=== PATIENT | male | born 1945 | race African-American/Black ===

== ENCOUNTER 2019-07-03 11:33 | Inpatient (IN) | payer OTHER ==
--- NOTE | 2019-07-03 12:00 | PDOC ---
History of Present Illness - General Chief Complaint: Revisit,Radiology Variance Stated Complaint: SENT FROM RADIOLOGY Time Seen by Provider: 07/03/19 11:59 History Source: Patient Exam Limitations: No Limitations - History of Present Illness Initial Comments: Darwin Smith is a 74 yo M w a pmh of HTN, HCL, cataracts, and BPH who presents to the [facility] er from radiology after he had an abnormal MRI result suggesting the patient is having an acute left temporal stroke and significant microvascular disease. The patient states he is asymptomatic at the present time. He saw Dr. Don as an outpatient [address] Don scheduled his brain MRI. The patient was seeing Dr. Don because he was experiencing memory loss and frequent episodes of confusion. The patient takes a baby aspirin every day and took one 81 mg aspirin this morning. The patient denies any current or recent weakness, numbness, tingling, chills, slurring of speech, falling down or head trauma, chest pain, SOB, fevers, chills or difficulty breathing. Neurologist: Dr. Don PCP: Jerod Naylor PSH: None reported Social Hx: Former smoker. Denies current alcohol, cigarettes, or illicit drug usage Allergies: NKA, NKDA tPA Exclusion checklist 3-4.5h - Time Elapsed Date last known well: 06/24/19 Time last known well: 07:00 Elaspsed time: 9 Day(s) and 6 Hour(s) and 37 Minutes - Thrombolytic Therapy Candidate Is patient eligible for thrombolytic therapy: No - Exclusion Criteria 3-4.5 hr SBP greater than 185 or DBP greater than 110mmHg despite tx: No Recent IC/spinal surgery,head trauma or stroke<3mos.: No Hx IC hemorrhage, IC neoplasm, AV malformation or aneurysm: No Active internal bleeding: No Blding diathesis(low plt ct, inc PTT,INR>1.7 or use of NOAC): No Symptoms suggest subarachnoid hemorrhage: No CT demonstrates multilobar infarct(>1/3 cerebral hemiphere): No Arterial puncture at noncompressible site in previous 7 days: No Blood glucose concentration less than 50mg/dL (2.7mmol/L): No - Relative Exclusion Criteria 3-4.5 hr Life expectancy <1 yr or severe co-morbid illness: No : No Patient/family refused: No Rapid improvement: Yes Stroke severity too mild: Yes Recent acute MA (w/in previous 3 months): No Seizure at onset with postictal residual neuro impairments: No Major surgery or serious trauma w/in previous 14 days: No Recent GI or hemorrhage (w/in previous 21 days): No - Add'l Relative Exclusion 3-4.5 hr Age > 80: No Hx of both diabetes AND prior ischemic stroke: No Taking an oral anticoagulant regardless of INR: No NIHSS >25: No - Ineligibility reason(s) Reasons No tPA given: Outside of window - delayed arrival, See reason(s) noted above NIH Stroke Scale - Last Known Well Date/Time & Onset Date Last Known Well: 06/23/19 Time Last Known Well: 07:00 - Initial Evaluation Level of consciousness: Alert Ask patient the month and their age: Answers one correctly Ask patient to open & close eyes; make fist and let go: Obeys both correctly Best gaze (horizontal eye movement): Normal Visual field testing: No visual field loss Facial paresis (Show teeth/raise eyebrows/close eyes tight): Normal symmetrical movement Motor Function: Left Arm: Normal Motor Function: Right Arm: Normal (extends arm 90 (or 45) degrees for 10 seconds without drift Motor Function: Left Leg: Normal (extends leg 30 degrees for 5 seconds without drift) Motor Function: Right Leg: Normal (extends leg 30 degrees for 5 seconds without drift) Limb Ataxia: No ataxia Sensory(Use pinprick test arms,legs,trunk,face/side to side): Normal Best language (Describe picture, name items, read sentences): No Aphasia Dysarthria (read several words): Normal articulation Extinction and Inattention: No abnormality - Total Score NIH Stroke Scale Score: 1 Past History - Past Medical History Allergies/Adverse Reactions: Allergies Allergy/AdvReac Type Severity Reaction Status Date / Time No Known Allergies Allergy Verified 07/03/19 11:42 Home Medications: Ambulatory Orders Aspirin [ASA -] 81 mg PO DAILY 07/03/19 Atenolol [Tenormin -] 25 mg PO DAILY 07/03/19 Atorvastatin Ca [Lipitor] 20 mg PO HS 07/03/19 Finasteride [Proscar -] 5 mg PO DAILY 07/03/19 Tamsulosin HCl [Flomax] 0.4 mg PO DAILY 07/03/19 COPD: No HTN: Yes Hypercholesterolemia: Yes Other medical history: prostate - Surgical History Gastric Stapling: No - Immunization History Immunization Up to Date: No - Psycho Social/Smoking Cessation Hx Smoking History: Former smoker Have you smoked in the past 12 months: No Information on smoking cessation initiated: No Hx Alcohol Use: No Drug/Substance Use Hx: No Review of Systems - Review of Systems Able to Perform ROS?: Yes Comments:: CONSTITUTIONAL: Absent: fever, chills, diaphoresis, generalized weakness, malaise, loss of appetite HEENT: Absent: rhinorrhea, nasal congestion, throat pain, throat swelling, difficulty swallowing, mouth swelling, ear pain, eye pain, visual Changes CARDIOVASCULAR: Absent: chest pain, syncope, palpitations, irregular heart rate, lightheadedness , peripheral edema RESPIRATORY: Absent: cough, shortness of breath, dyspnea with exertion, orthopnea, wheezing, stridor, hemoptysis GASTROINTESTINAL: Absent: abdominal pain, abdominal distension, nausea, vomiting, diarrhea, constipation, melena, hematochezia GENITOURINARY: Absent: dysuria, frequency, urgency, hesitancy, hematuria, flank pain, genital pain MUSCULOSKELETAL: Absent: myalgia, arthralgia, joint swelling SKIN: Absent: rash, itching, pallor HEMATOLOGIC/IMMUNOLOGIC: Absent: easy bleeding, easy bruising, lymphadenopathy, frequent infections ENDOCRINE: Absent: unexplained weight gain, unexplained weight loss, heat intolerance, cold intolerance NEUROLOGIC: Present: Confusion/mental status changes, memory loss Absent: headache, focal weakness or paresthesias, dizziness, unsteady gait, seizure, bladder or bowel incontinence PSYCHIATRIC: Absent: anxiety, depression, suicidal or homicidal ideation, hallucinations. *Physical Exam - Vital Signs Last Vital Signs Temp Pulse Resp BP Pulse Ox 98.2 F 55 L 16 167/85 97 07/03/19 11:38 07/03/19 11:38 07/03/19 11:38 07/03/19 11:38 07/03/19 11:38 - Physical Exam Comments: GENERAL: Well developed, well nourished. Awake and alert. No acute distress. HEENT: Arcus Senilis b/l. Normocephalic, atraumatic. PERRLA, EOMI. No conjunctival pallor. Sclera are non-icteric. Moist mucous membranes. Oropharynx is clear. NECK: Supple. Full ROM. No JVD. CARDIOVASCULAR: Regular rate and rhythm. No murmurs, rubs, or gallops. Distal pulses are 2+ and symmetric. PULMONARY: No evidence of respiratory distress. Lungs clear to auscultation bilaterally. No wheezing, rales or rhonchi. ABDOMINAL: Soft. Non-tender. Non-distended. No rebound or guarding. No organomegaly. Normoactive bowel sounds. MUSCULOSKELETAL Normal range of motion at all joints. No bony deformities or tenderness. No CVA tenderness. EXTREMITIES: No cyanosis. No clubbing. No edema. No calf tenderness. SKIN: Warm and dry. Normal capillary refill. No rashes. No jaundice. NEUROLOGICAL: Alert, awake, appropriate. Cranial nerves 2-12 intact. No deficits to light touch in face, upper extremities and lower extremities. No motor deficits in the in face, upper extremities and lower extremities. Normal speech. Gait is normal without ataxia. PSYCHIATRIC: Cooperative. Good eye contact. Appropriate mood and affect. Heart Score/ECG Review - ECG Intrepretation Rhythm: Regular Rhythm - Aquilla Aquilla: Right Aquilla Deviation - P and AL Prolonged AL Interval: 1st Degree Block(>20mils) Prominent R with upright T in V1 (true posterior MA): No Delta Wave(s) Present: No WPW: No - QRS Widened: RBBB Poor R Wave Progression: No Q Wave Present: No - ST and T Early Repolarization: No Non Specific ST-T Wave changes: No - ECG Impressions Normal ECG: No Non-specific ST Elevation: No Bradycardia: Yes Heart Block: 1st Degree Block(>20mils) Torsades laurie Pointes: No WPW: No Comment:: Sinus bradycardia w/ 1st degree AV block. RBBB Abnormal EKG - No evidence of A-fib ED Treatment Course - LABORATORY CBC & Chemistry Diagram: 07/03/19 12:50 07/03/19 12:50 - RADIOLOGY Radiograph Interpretation: Brain MRI: Indication: Dementia. Memory loss. Technique: A multi sequential, multiplanar MRI of the brain without contrast. Comparison: None available. Findings: There is abnormal restricted diffusion with hyperintense T2/FLAIR signal in the left temporal lobe with regional sulcal compression. No evidence of blood products within this infarct on SWI. There is mild generalized age- related volume loss with ex vacuo prominence of the sulci, cisterns and ventricles. There is no hydrocephalus. Confluent and nonconfluent T2/FLAIR signal within the deep and subcortical cerebral white matter is nonspecific, but likely attributed to chronic microvascular ischemia. There is also relatively symmetric nonspecific T2/FLAIR signal within the region of the pontine tegmentum. Several foci of susceptibility within the left lentiform nucleus and bilateral caudates is likely hemosiderin from chronic petechial microhemorrhages, statistically likely to be due to hypertension. Signal voids related to flow are present in the large central arteries of the [place] and major dural sinuses. No fluid levels in the paranasal sinuses or mastoids. Impression: 1. Acute nonhemorrhagic left temporal infarct with regional sulcal compression. No significant mass effect or hydrocephalus. 2. Moderate to severe chronic microvascular ischemic changes in the cerebral white matter. Nonspecific T2/FLAIR signal abnormality within the pontine tegmentum is not typical of chronic microvascular ischemia. 3. Gangliocapsular chronic petechial microhemorrhages are statistically likely to be due to hypertension. Findings reported to Dr. Walters at 11:15 AM on 07/03/2019. Patient escorted to the emergency department by radiology staff. Medical Decision Making - Medical Decision Making Darwin Smith is a 74 yo M w a pmh of HTN, HCL, cataracts, and BPH who presents to the [facility] er from radiology after he had an abnormal MRI result suggesting the patient is having an acute left temporal stroke and significant microvascular disease. The patient states he is asymptomatic at the present time. He saw Dr. Don as an outpatient [address] Don scheduled his brain MRI. The patient was seeing Dr. Don because he was experiencing memory loss and frequent episodes of confusion. The patient takes a baby aspirin every day and took one 81 mg aspirin this morning. The patient denies any current or recent weakness, numbness, tingling, chills, slurring of speech, falling down or head trauma, chest pain, SOB, fevers, chills or difficulty breathing. Vital Signs Temp Pulse Resp BP Pulse Ox 98.2 F 55 L 16 167/85 97 07/03/19 11:38 07/03/19 11:38 07/03/19 11:38 07/03/19 11:38 07/03/19 11:38 Brain MRI: Impression: 1. Acute nonhemorrhagic left temporal infarct with regional sulcal compression. No significant mass effect or hydrocephalus. 2. Moderate to severe chronic microvascular ischemic changes in the cerebral white matter. Nonspecific T2/FLAIR signal abnormality within the pontine tegmentum is not typical of chronic microvascular ischemia. 3. Gangliocapsular chronic petechial microhemorrhages are statistically likely to be due to hypertension. MDM: Patient presents with suspicious MRI brain findings worrisome for acute stroke and is at risk for further strokes. Plan: Stroke workup with labs, EKG, CXR, ECHO, Carotid duplex, Neuro consult, admit to stroke floor Neuro consult - Dr. Don: He is following patient. Wants the patient admitted to the stroke unit for work up. Requests 2 more baby aspirin no plavix. Labs: Elevated Cr Dispo: Admit to stroke floor Discharge - Discharge Information Problems reviewed: Yes Clinical Impression/Diagnosis: NIKOS (acute kidney injury) CVA (cerebral vascular accident) Qualifiers: CVA mechanism: thrombosis Precerebral and cerebral artery: unspecified precerebral artery Qualified Code(s): I63.00 - Cerebral infarction due to thrombosis of unspecified precerebral artery Condition: Stable - Admission Yes - Follow up/Referral - Patient Discharge Instructions - Post Discharge Activity
[2019-07-03] MEDS ORDERED: ASPIRIN 81 MG CHEWABLE TABLETS PO ONE (12:16)
[2019-07-03] MEDS ORDERED: ROSUVASTATIN CA 5 MG TABLET (FP) PO ONE (12:40)
--- NOTE | 2019-07-03 12:45 | CON.NEURO ---
Consult Consult Specialty:: Arian Referred by:: ER Reason for Consultation:: CVA - History of Present Illness History of Present Illness: 74 years old man with PMH CAD OA HTN BPH came for elective MRI due to subacute memory changes and confusion I saw him 10 days ago as out patient referred him to MRI Called by the MRI with acute change In [facility] ER calm No AMS No seizure MRI images noted Subcortical lesion ??? 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 industrial trainer Rsults are not available - History Source History Provided By: Patient, Family Member, Significant Other Limitations to Obtaining History: No Limitations - Alcohol/Substance Use Hx Alcohol Use: No - Smoking History Smoking history: Former smoker Have you smoked in the past 12 months: No Home Medications - Allergies Allergies/Adverse Reactions: Allergies Allergy/AdvReac Type Severity Reaction Status Date / Time No Known Allergies Allergy Verified 07/03/19 11:42 - Home Medications Home Medications: Ambulatory Orders Aspirin [ASA -] 81 mg PO DAILY 07/03/19 Atenolol [Tenormin -] 25 mg PO DAILY 07/03/19 Atorvastatin Ca [Lipitor] 20 mg PO HS 07/03/19 Finasteride [Proscar -] 5 mg PO DAILY 07/03/19 Tamsulosin HCl [Flomax] 0.4 mg PO DAILY 07/03/19 Review of Systems - Review of Systems Constitutional: reports: No Symptoms Eyes: reports: No Symptoms Neurological: reports: Dizziness, Headache, Incoordination, Numbness Physical Exam-Neuro Vital Signs: Vital Signs Temperature 98.2 F 07/03/19 11:38 Pulse Rate 55 L 07/03/19 11:38 Respiratory Rate 16 07/03/19 11:38 Blood Pressure 167/85 07/03/19 11:38 O2 Sat by Pulse Oximetry (%) 97 07/03/19 11:38 Constitutional: Yes: Well Nourished Neck: Yes: WNL - Neuro Exam Level Of Consciousness: Yes: Oriented to Person, Oriented to Place, Oriented to Time Eyes: Yes: PERRLA Speech: WNL Dominant Hand: Right Cranial Nerves II-XII Intact: Yes Gag: Present DTR's: 1+ Left Bicep, 1+ Right Bicep, 1+ Left Brachioradialis, 1+ Right Brachioradialis Response to light touch: Normal Response to pain prick: Normal Response to temperature: Normal Motor Strength: 3/5: Left Arm, Right Arm, Left Leg, Right Leg Gait: Deferred Imaging - Results MRI: Image Reviewed Problem List - Problems (1) CVA (cerebral vascular accident) Assessment/Plan: very peculiar looking non cortical lesion in [facility] posterior frontal area with no edema Doubt CVA 1. Admit to [facility] stroke unit 2. Neuro check s 3. Spoke to his PCP at [facility] 4 .Full ASA 5. Lipitor 40 6. MRI of [facility] brain with Espinoza Code(s): I63.9 - CEREBRAL INFARCTION, UNSPECIFIED Qualifiers: CVA mechanism: thrombosis Precerebral and cerebral artery: unspecified precerebral artery Qualified Code(s): I63.00 - Cerebral infarction due to thrombosis of unspecified precerebral artery
--- NOTE | 2019-07-03 12:46 | PDOC ---
Attending Attestation - Resident Resident Name: PablovolodymyrAlvin - ED Attending Attestation I have performed the following: I have examined & evaluated the patient, The case was reviewed & discussed with the resident, I agree w/resident's findings & plan, Exceptions are as noted - HPI HPI: 07/03/19 12:54 74yo male presents from MRI imaging for eval of an acute cva seen on MRI. Pt states friday a week ago he developed memory loss. States he saw his pmd and then dr. servin who orderd an MRI brain for poss early onset dementia and memory loss. Pt went to outpt imaging today and was sent to the ER for eval of acute cva on MRI. Pt did take asa this am. Only neuro complaint is memory loss. No pires. No cp/sob. No numbness/tingling. No weakness. NO abd pain. No n/v/d. NO dysuria. No f/c. - Physicial Exam PE: 07/03/19 12:55 Gen: aaox3, nad heent: PERRL, EOMI, MMM heart: +s1s2 dimitri lungs: cta b/l abd: soft, nt/nd +bs ext: no c/c/e neuro: cn ii-xii grossly intact, unable to ID month, muscle strength 5/5 UE and LE, sensation intact - Medical Decision Making 07/03/19 12:56 a/p: 74yo male with memory loss x 1 week -acute cva temporal lobe on mri -consult and call placed to dr. servin -pt will need admission, carotids, and echo, will send labs -will admit to [facility] -no tpa given 1 week of symptoms -NIHSS 1 for inability remember the month 07/03/19 13:33 labs reviewed microblog sent to [facility] for admission for acute cva 07/03/19 13:53 resident discussed the case with [facility] who accepts pt to service Heart Score/ECG Review - ECG Intrepretation Comment:: 07/03/19 12:59 sinus dimitri at 47, rbbb, 1st degree av block, no acute st/t wave findings
[2019-07-03] MEDS ORDERED: ASPIRIN 81 MG CHEWABLE TABLETS ONE (13:00)
[2019-07-03 13:07] LABS: EOS % 2.2 % (0-4.5); HEMATOCRIT 38.8 % (35.4-49); HEMOGLOBIN 11.9 GM/dL (11.7-16.9); LYMPH % 43.4 % (8-40); MCHC 30.5 g/dl (32.0-35.9); MEAN CELL VOLUME 61.3 fl (80-96); MEAN PLT VOLUME 9.6 fl (7.5-11.1); MONO % 8.1 % (3.8-10.2); NEUT % 45.3 % (42.8-82.8); PLATELET COUNT 180 K/MM3 (134-434); RBC 6.33 M/mm3 (4.00-5.60); RDW 17.1 % (11.9-15.9); WHITE BLOOD COUNT 6.9 K/mm3 (4.0-10.0)
[2019-07-03 13:09] LABS: MCH 18.7 pg (25.7-33.7)
[2019-07-03 13:23] LABS: INR 1.02 (0.83-1.09)
[2019-07-03 13:25] LABS: ACTIVATED PTT 36.5 SECONDS (25.2-36.5)
[2019-07-03 13:28] LABS: ALBUMIN 3.8 g/dl (3.4-5.0); BILIRUBIN,TOTAL 0.6 mg/dL (0.2-1); BLOOD UREA NITROGEN 16.1 mg/dL (7-18); CALCIUM 9.1 mg/dL (8.5-10.1); CREATININE 1.4 mg/dL (0.55-1.3); POTASSIUM 4.1 mmol/L (3.5-5.1); TOT PROT 7.2 g/dl (6.4-8.2)
[2019-07-03 14:36] LABS: OVALOCYTE 1+; PLATELET ESTIMATE ADEQUATE; TARGET CELLS 2+; TEAR DROP CELLS 1+
--- NOTE | 2019-07-03 15:26 | HP ---
CHIEF COMPLAINT: forgetfullness PCP: Dr. Jerod Tomas HISTORY OF PRESENT ILLNESS: Patient is a 74 y/o male with a history of COPD, OA, HTN, BPH, and HLD who presents for forgetfullness. Patient recently saw Dr. Don as an outpatient and recommended the patient have a MRI. Patient was getting his MRI today and they called Dr. Don with the results who recommended the patient be admitted to the stroke floor. Patient reports that he has also been more tired recently. Patient has no other neuro complaints. ED NIH score 1 ( forgot the month). Patient does not have anyone in his family who has had a stroke. Reports he is compliant with his medications. Patient denies headache, nausea, vomiting, blurry vision, or chest pain. ER course was notable for: (1) carotids: no stenosis (2) (3) Recent Travel: [place] 1 year ago PAST MEDICAL HISTORY: COPD, OA, HTN, BPH, and HLD PAST SURGICAL HISTORY: Turp Social History: Smokin pack year history, no longer smokes Alcohol: occasionally Drugs: denies Allergies No Known Allergies Allergy (Verified 07/03/19 11:42) HOME MEDICATIONS: Home Medications Medication Instructions Recorded Aspirin [ASA -] 81 mg PO DAILY 07/03/19 Atenolol [Tenormin -] 25 mg PO DAILY 07/03/19 Atorvastatin Ca [Lipitor] 20 mg PO HS 07/03/19 Finasteride [Proscar -] 5 mg PO DAILY 07/03/19 Tamsulosin HCl [Flomax] 0.4 mg PO DAILY 07/03/19 REVIEW OF SYSTEMS CONSTITUTIONAL: Absent: fever, chills, diaphoresis, generalized weakness, malaise, loss of appetite, weight change HEENT: Absent: rhinorrhea, nasal congestion, throat pain, throat swelling, difficulty swallowing, mouth swelling, ear pain, eye pain, visual changes CARDIOVASCULAR: Absent: chest pain, syncope, palpitations, irregular heart rate, lightheadedness , peripheral edema RESPIRATORY: Absent: cough, shortness of breath, dyspnea with exertion, orthopnea, wheezing, stridor, hemoptysis GASTROINTESTINAL: Absent: abdominal pain, abdominal distension, nausea, vomiting, diarrhea, constipation, melena, hematochezia GENITOURINARY: Absent: dysuria, frequency, urgency, hesitancy, hematuria, flank pain, genital pain MUSCULOSKELETAL: Absent: myalgia, arthralgia, joint swelling, back pain, neck pain SKIN: Absent: rash, itching, pallor HEMATOLOGIC/IMMUNOLOGIC: Absent: easy bleeding, easy bruising, lymphadenopathy, frequent infections ENDOCRINE: Absent: unexplained weight gain, unexplained weight loss, heat intolerance, cold intolerance NEUROLOGIC: memory loss Absent: headache, focal weakness or paresthesias, dizziness, unsteady gait, seizure, mental status changes, bladder or bowel incontinence PSYCHIATRIC: Absent: anxiety, depression, suicidal or homicidal ideation, hallucinations. PHYSICAL EXAMINATION Vital Signs - 24 hr 07/03/19 07/03/19 11:38 15:13 Temperature 98.2 F Pulse Rate 55 L Pulse Rate [ 60 Apical] Respiratory 16 18 Rate Blood Pressure 167/85 Blood Pressure 132/68 [Left Arm] O2 Sat by Pulse 97 96 Oximetry (%) GENERAL: Awake, alert, and fully oriented, in no acute distress. HEAD: Normal with no signs of trauma. EYES: Pupils equal, round and reactive to light, extraocular movements intact EARS, NOSE, THROAT: Moist mucous membranes. LUNGS: Breath sounds equal, clear to auscultation bilaterally. No wheezes, and no crackles. No accessory muscle use. HEART: Regular rate and rhythm, normal S1 and S2 without murmur, rub or gallop. ABDOMEN: Soft, nontender, not distended, normoactive bowel sounds, no guarding, no rebound, no masses. MUSCULOSKELETAL: Normal range of motion at all joints. LOWER EXTREMITIES: 2+ pulses, warm, well-perfused. No calf tenderness. No peripheral edema. NEUROLOGICAL: Cranial nerves II-XII intact. Normal speech. Normal gait. PSYCHIATRIC: Cooperative. Good eye contact. Appropriate mood and affect. SKIN: Warm, dry, normal turgor, no rashes or lesions noted, normal capillary refill. CBC, BMP 07/03/19 12:50 07/03/19 12:50 ASSESSMENT/PLAN: Patient is a 74 y/o male with a history of COPD, OA, HTN, BPH, and HLD who is admitted for possible subcortical lesion. #memory change - unlikely CVA as per neuro, likely 2/2 to mass - MRI: non cortical lesion in the posterior frontal area without edema - f/u repeat MRI with gadolinium - neuro checks - continue asa 81 - continue atorvastatin 40 daily - carotid US: without any stenosis - f/u Echo - monitor on tele, ekg with RBB #HTN - continue atenolol #BPH - continue finasteride and tamsulosin #DVT ppx - SCD's, hold AC #FEN - NPO until passes bedside swallow Dispo: monitor on stroke unit Visit type - Emergency Visit Emergency Visit: Yes ED Registration Date: 07/03/19 Care time: The patient presented to the Emergency Department on the above date and was hospitalized for further evaluation of their emergent condition. - New Patient This patient is new to me today: Yes Date on this admission: 07/05/19 - Critical Care Critical Care patient: No ATTENDING PHYSICIAN STATEMENT I saw and evaluated the patient. I reviewed the resident's note and discussed the case with the resident. I agree with the resident's findings and plan as documented. SUBJECTIVE: OBJECTIVE: ASSESSMENT AND PLAN:
--- NOTE | 2019-07-03 15:52 | PN ---
Teaching Attending Note Name of Resident: Arlene Dee ATTENDING PHYSICIAN STATEMENT I saw and evaluated the patient. I reviewed the resident's note and discussed the case with the resident. I agree with the resident's findings and plan as documented. SUBJECTIVE: Complains of recent bouts of forgetfulness. No headache/visual disturbance/limb numbness, weakness, or tingling. No fever/chills. NO LOC - no seizure/blackouts/fall/HI. OBJECTIVE: Afebrile, Hemodynamically Stable. Last Vital Signs Temp Pulse Resp BP Pulse Ox 98.2 F 60 18 132/68 96 07/03/19 11:38 07/03/19 15:13 07/03/19 15:13 07/03/19 15:13 07/03/19 15:13 HEENT - Atraumatic, Normocephalic. HEART - S1, S2, RRR LUNGS - clear to auscultation ABDOMEN - Soft, non-tender. Bowel Sounds normal. EXTREMITIES - no edema, no calf tenderness. NEURO - AAO x 3. EOMI. JAYSHREE. TONE/POWER normal all 4 extremities. Sensation/ Coordination intact. Laboratory Results - last 24 hr 07/03/19 07/03/19 07/03/19 12:50 12:50 12:50 WBC 6.9 RBC 6.33 H Hgb 11.9 Hct 38.8 MCV 61.3 L MCH 18.7 L MCHC 30.5 L RDW 17.1 H Plt Count 180 MPV 9.6 Absolute Neuts (auto) 3.1 Neutrophils % 45.3 Lymphocytes % 43.4 H Monocytes % 8.1 Eosinophils % 2.2 Basophils % 1.0 Nucleated RBC % 0 Platelet Estimate Adequate Platelet Comment No clumping noted Polychromasia 1+ Basophilic Stippling 1+ Microcytosis 1+ Spherocytes 1+ Target Cells 2+ Tear Drop Cells 1+ Ovalocytes 1+ Fragmented RBCs 1+ PT with INR INR PTT (Actin FS) Sodium 144 Potassium 4.1 Chloride 109 H Carbon Dioxide 28 Anion Gap 8 BUN 16.1 Creatinine 1.4 H Est GFR (CKD-EPI)AfAm 57.36 Est GFR (CKD-EPI)NonAf 49.49 Random Glucose 87 Calcium 9.1 Total Bilirubin 0.6 AST 15 ALT 26 Alkaline Phosphatase 55 Creatine Kinase 156 Creatine Kinase Index 0.8 CK-MB (CK-2) 1.4 Troponin I < 0.02 Total Protein 7.2 Albumin 3.8 Triglycerides 95 Cholesterol 174 Total LDL Cholesterol 84 HDL Cholesterol 73 H Blood Type Antibody Screen 07/03/19 07/03/19 12:50 12:50 WBC RBC Hgb Hct MCV MCH MCHC RDW Plt Count MPV Absolute Neuts (auto) Neutrophils % Lymphocytes % Monocytes % Eosinophils % Basophils % Nucleated RBC % Platelet Estimate Platelet Comment Polychromasia Basophilic Stippling Microcytosis Spherocytes Target Cells Tear Drop Cells Ovalocytes Fragmented RBCs PT with INR 12.00 INR 1.02 PTT (Actin FS) 36.5 Sodium Potassium Chloride Carbon Dioxide Anion Gap BUN Creatinine Est GFR (CKD-EPI)AfAm Est GFR (CKD-EPI)NonAf Random Glucose Calcium Total Bilirubin AST ALT Alkaline Phosphatase Creatine Kinase Creatine Kinase Index CK-MB (CK-2) Troponin I Total Protein Albumin Triglycerides Cholesterol Total LDL Cholesterol HDL Cholesterol Blood Type A NEGATIVE Antibody Screen Negative Current Medications Generic Name Dose Route Start Last Admin Trade Name Freq PRN Reason Stop Dose Admin Aspirin 81 mg 07/04/19 10:00 Asa - PO DAILY [facility] Atenolol 25 mg 07/04/19 10:00 Tenormin - PO DAILY [facility] Atorvastatin Calcium 40 mg 07/04/19 06:00 Lipitor - PO DAILY@0600 [facility] Enoxaparin Sodium 40 mg 07/04/19 10:00 Lovenox - SQ DAILY [facility] Finasteride 5 mg 07/04/19 10:00 Proscar - PO DAILY [facility] Sodium Chloride 1,000 mls @ 42 mls/hr 07/03/19 12:30 Normal Saline - IV ASDIR [facility] Tamsulosin HCl 0.4 mg 07/04/19 08:30 Flomax - PO DAILY@0830 [facility] Home Medications Medication Instructions Recorded Aspirin [ASA -] 81 mg PO DAILY 07/03/19 Atenolol [Tenormin -] 25 mg PO DAILY 07/03/19 Atorvastatin Ca [Lipitor] 20 mg PO HS 07/03/19 Finasteride [Proscar -] 5 mg PO DAILY 07/03/19 Tamsulosin HCl [Flomax] 0.4 mg PO DAILY 07/03/19 ASSESSMENT AND PLAN: 74 year old male ex-smoker with history of COPD, HTN, HLD, BPH s/p TURP, initially presented to Neuro with recent bouts of forgetfulness, had MRI as an out-patient which was significant for possible acute CVA (L temporal infarct) with moderae to severe chronic microvascular changes, and petechial hemorrhages. No headache/visual disturbance/limb numbness, weakness, or tingling. No fever/chills. NO LOC - no seizure/blackouts/fall/HI. 1. Possible Anterograde Amnesia Otherwiese Neurologicaly intact. ?sec to vascular event Seen by Neurology who is questioning possible ischemic lesion/cortical mass in posterior frontal region. Continue Aspirin, Statin (dose increased to 40mg) Repeat MRI with ZAHIDA ordered. Carotid Duplex negative for significant stenosis ECG - SR, RBBB Echo with bubble study ordered. Neurology evaluated Telemonitoring bed. 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 HTN - continue Atenolol 3. BPH s/p TURP - Continue Finasteride and Tamsulosin 4. HLD - Continue Statin. 5. Elevated Creat 1.4, likely CKD. Urine Na/Creat requested. Baseline Creat unknown. Will ensure adequate hydration and monitor. 6. Microcytosis - no evidence of acute blood loss. Denies melena/hematochezia. Iron studies requested. FOBT requested. DVT Px - SCDs. Lovenox held due to possible petechial hemorrhages on initial MRI.
[2019-07-03] MEDS: SODIUM CHLORIDE 1,000 ML IV SCH (16:42)
[2019-07-03 22:55] LABS: EPI CELLS 1.2 /HPF (0-5/HPF); HYALINE CASTS 2 /lpf (0-8); URINE APPEARANCE CLEAR; URINE BACTERIA 0.5 /hpf (NEGATIVE); URINE BILIRUBIN NEGATIVE (NEGATIVE); URINE COLOR YELLOW; URINE GLUCOSE (UA) NEGATIVE (NEGATIVE); URINE KETONE NEGATIVE (NEGATIVE); URINE LEUK ESTERASE TRACE (NEGATIVE); URINE NITRITE NEGATIVE (NEGATIVE); URINE PROTEIN NEGATIVE (NEGATIVE); URINE RBC 0 /hpf (0-4); URINE WBC 6 /hpf (0-5)
[2019-07-04] MEDS ORDERED: ATORVASTATIN CA 40 MG TABLET (FP) PO SCH ×2 (06:00→23:45)
[2019-07-04 07:55] LABS: HEMATOCRIT 35.1 % (35.4-49); HEMOGLOBIN 10.8 GM/dL (11.7-16.9); MCHC 30.7 g/dl (32.0-35.9); MEAN PLT VOLUME 9.4 fl (7.5-11.1); PLATELET COUNT 163 K/MM3 (134-434); RBC 5.76 M/mm3 (4.00-5.60); RDW 16.7 % (11.9-15.9); WHITE BLOOD COUNT 6.4 K/mm3 (4.0-10.0)
[2019-07-04 08:02] LABS: MCH 18.7 pg (25.7-33.7)
[2019-07-04] MEDS: TAMSULOSIN HCL 0.4 MG CAP PO SCH (08:20)
[2019-07-04 08:22] LABS: ALBUMIN 3.1 g/dl (3.4-5.0); BILIRUBIN,TOTAL 0.6 mg/dL (0.2-1); BLOOD UREA NITROGEN 14.4 mg/dL (7-18); CALCIUM 8.7 mg/dL (8.5-10.1); CREATININE 1.4 mg/dL (0.55-1.3); PHOSPHOROUS 3.2 mg/dL (2.5-4.9); POTASSIUM 4.4 mmol/L (3.5-5.1); TOT PROT 5.9 g/dl (6.4-8.2)
[2019-07-04] MEDS: FINASTERIDE 5 MG TABLET (FP) PO SCH (09:38)
[2019-07-04] MEDS: ASPIRIN 81 MG CHEWABLE TABLETS PO SCH (09:38)
[2019-07-04] MEDS: ATENOLOL 25 MG TABLET (FP) PO SCH (09:41)
[2019-07-04] MEDS ORDERED: ENOXAPARIN NA (PORCINE) 40 MG/0.4 ML DISP.SYRIN SQ SCH (10:00)
--- NOTE | 2019-07-04 11:36 | PN ---
Progress Note (short form) - Note Progress Note: SUBJECTIVE: Complains of recent bouts of forgetfulness over the past week. No headache/visual disturbance/limb numbness, weakness, or tingling. No fever/ chills. NO LOC - no seizure/blackouts/fall/HI. OBJECTIVE: Afebrile, Hemodynamically Stable. Last Vital Signs Temp Pulse Resp BP Pulse Ox 98 F 53 L 18 135/81 98 07/04/19 08:43 07/04/19 08:43 07/04/19 08:43 07/04/19 08:43 07/03/19 20:06 HEENT - Atraumatic, Normocephalic. HEART - S1, S2, RRR LUNGS - clear to auscultation ABDOMEN - Soft, non-tender. Bowel Sounds normal. EXTREMITIES - no edema, no calf tenderness. NEURO - AAO x 3. EOMI. JAYSHREE. TONE/POWER normal all 4 extremities. Sensation/ Coordination intact. Laboratory Results - last 24 hr 07/03/19 07/03/19 07/03/19 12:50 12:50 12:50 WBC 6.9 RBC 6.33 H Hgb 11.9 Hct 38.8 MCV 61.3 L MCH 18.7 L MCHC 30.5 L RDW 17.1 H Plt Count 180 MPV 9.6 Absolute Neuts (auto) 3.1 Neutrophils % 45.3 Lymphocytes % 43.4 H Monocytes % 8.1 Eosinophils % 2.2 Basophils % 1.0 Nucleated RBC % 0 Platelet Estimate Adequate Platelet Comment No clumping noted Polychromasia 1+ Basophilic Stippling 1+ Microcytosis 1+ Spherocytes 1+ Target Cells 2+ Tear Drop Cells 1+ Ovalocytes 1+ Fragmented RBCs 1+ PT with INR INR PTT (Actin FS) Sodium 144 Potassium 4.1 Chloride 109 H Carbon Dioxide 28 Anion Gap 8 BUN 16.1 Creatinine 1.4 H Est GFR (CKD-EPI)AfAm 57.36 Est GFR (CKD-EPI)NonAf 49.49 Random Glucose 87 Calcium 9.1 Phosphorus Magnesium Iron TIBC Iron Saturation Unsaturated IBC Ferritin Total Bilirubin 0.6 AST 15 ALT 26 Alkaline Phosphatase 55 Creatine Kinase 156 Creatine Kinase Index 0.8 CK-MB (CK-2) 1.4 Troponin I < 0.02 Total Protein 7.2 Albumin 3.8 Triglycerides 95 Cholesterol 174 Total LDL Cholesterol 84 HDL Cholesterol 73 H Urine Color Urine Appearance Urine pH Ur Specific Bucklin Urine Protein Urine Glucose (UA) Urine Ketones Urine Blood Urine Nitrite Urine Bilirubin Urine Urobilinogen Ur Leukocyte Esterase Urine WBC (Auto) Urine RBC (Auto) Urine Casts (Auto) U Epithel Cells (Auto) Urine Bacteria (Auto) Ur Random Creatinine Ur Random Sodium Stool Occult Blood Blood Type Antibody Screen 07/03/19 07/03/19 07/03/19 12:50 12:50 18:38 WBC RBC Hgb Hct MCV MCH MCHC RDW Plt Count MPV Absolute Neuts (auto) Neutrophils % Lymphocytes % Monocytes % Eosinophils % Basophils % Nucleated RBC % Platelet Estimate Platelet Comment Polychromasia Basophilic Stippling Microcytosis Spherocytes Target Cells Tear Drop Cells Ovalocytes Fragmented RBCs PT with INR 12.00 INR 1.02 PTT (Actin FS) 36.5 Sodium Potassium Chloride Carbon Dioxide Anion Gap BUN Creatinine Est GFR (CKD-EPI)AfAm Est GFR (CKD-EPI)NonAf Random Glucose Calcium Phosphorus Magnesium Iron TIBC Iron Saturation Unsaturated IBC Ferritin Total Bilirubin AST ALT Alkaline Phosphatase Creatine Kinase Creatine Kinase Index CK-MB (CK-2) Troponin I Total Protein Albumin Triglycerides Cholesterol Total LDL Cholesterol HDL Cholesterol Urine Color Urine Appearance Urine pH Ur Specific [place] Urine Protein Urine Glucose (UA) Urine Ketones Urine Blood Urine Nitrite Urine Bilirubin Urine Urobilinogen Ur Leukocyte Esterase Urine WBC (Auto) Urine RBC (Auto) Urine Casts (Auto) U Epithel Cells (Auto) Urine Bacteria (Auto) Ur Random Creatinine Ur Random Sodium Stool Occult Blood Blood Type A NEGATIVE A NEGATIVE Antibody Screen Negative 07/03/19 07/04/19 07/04/19 Unknown 06:00 07:47 WBC 6.4 RBC 5.76 H Hgb 10.8 L Hct 35.1 L MCV 61.0 L MCH 18.7 L MCHC 30.7 L RDW 16.7 H Plt Count 163 MPV 9.4 Absolute Neuts (auto) Neutrophils % Lymphocytes % Monocytes % Eosinophils % Basophils % Nucleated RBC % Platelet Estimate Platelet Comment Polychromasia Basophilic Stippling Microcytosis Spherocytes Target Cells Tear Drop Cells Ovalocytes Fragmented RBCs PT with INR INR PTT (Actin FS) Sodium 140 Potassium 4.4 Chloride 111 H Carbon Dioxide 23 Anion Gap 6 L BUN 14.4 Creatinine 1.4 H Est GFR (CKD-EPI)AfAm 57.36 Est GFR (CKD-EPI)NonAf 49.49 Random Glucose 89 Calcium 8.7 Phosphorus 3.2 Magnesium 2.0 Iron 67 TIBC 226 L Iron Saturation 29 Unsaturated IBC 159 L Ferritin 170.4 Total Bilirubin 0.6 AST 16 ALT 23 Alkaline Phosphatase 49 Creatine Kinase Creatine Kinase Index CK-MB (CK-2) Troponin I Total Protein 5.9 L Albumin 3.1 L Triglycerides Cholesterol Total LDL Cholesterol HDL Cholesterol Urine Color Yellow Urine Appearance Clear Urine pH 6.0 Ur Specific Bucklin 1.025 Urine Protein Negative Urine Glucose (UA) Negative Urine Ketones Negative Urine Blood Negative Urine Nitrite Negative Urine Bilirubin Negative Urine Urobilinogen 1.0 Ur Leukocyte Esterase Trace Urine WBC (Auto) 6 Urine RBC (Auto) 0 Urine Casts (Auto) 2 U Epithel Cells (Auto) 1.2 Urine Bacteria (Auto) 0.5 Ur Random Creatinine Ur Random Sodium Stool Occult Blood Blood Type Antibody Screen 07/04/19 07/04/19 09:00 09:00 WBC RBC Hgb Hct MCV MCH MCHC RDW Plt Count MPV Absolute Neuts (auto) Neutrophils % Lymphocytes % Monocytes % Eosinophils % Basophils % Nucleated RBC % Platelet Estimate Platelet Comment Polychromasia Basophilic Stippling Microcytosis Spherocytes Target Cells Tear Drop Cells Ovalocytes Fragmented RBCs PT with INR INR PTT (Actin FS) Sodium Potassium Chloride Carbon Dioxide Anion Gap BUN Creatinine Est GFR (CKD-EPI)AfAm Est GFR (CKD-EPI)NonAf Random Glucose Calcium Phosphorus Magnesium Iron TIBC Iron Saturation Unsaturated IBC Ferritin Total Bilirubin AST ALT Alkaline Phosphatase Creatine Kinase Creatine Kinase Index CK-MB (CK-2) Troponin I Total Protein Albumin Triglycerides Cholesterol Total LDL Cholesterol HDL Cholesterol Urine Color Urine Appearance Urine pH Ur Specific [place] Urine Protein Urine Glucose (UA) Urine Ketones Urine Blood Urine Nitrite Urine Bilirubin Urine Urobilinogen Ur Leukocyte Esterase Urine WBC (Auto) Urine RBC (Auto) Urine Casts (Auto) U Epithel Cells (Auto) Urine Bacteria (Auto) Ur Random Creatinine 65.0 Ur Random Sodium 95 Stool Occult Blood Negative Blood Type Antibody Screen Current Medications Generic Name Dose Route Start Last Admin Trade Name Freq PRN Reason Stop Dose Admin Aspirin 81 mg 07/04/19 10:00 07/04/19 09:38 Asa - PO 81 mg DAILY [facility] Administration Atenolol 25 mg 07/04/19 10:00 07/04/19 09:41 Tenormin - PO 25 mg DAILY [facility] Administration Atorvastatin Calcium 40 mg 07/04/19 06:00 07/04/19 05:49 Lipitor - PO 40 mg DAILY@0600 [facility] Administration Finasteride 5 mg 07/04/19 10:00 07/04/19 09:38 Proscar - PO 5 mg DAILY [facility] Administration Sodium Chloride 1,000 mls @ 42 mls/hr 07/03/19 12:30 07/03/19 16:42 Normal Saline - IV 42 mls/hr ASDIR [facility] Administration Tamsulosin HCl 0.4 mg 07/04/19 08:30 07/04/19 08:20 Flomax - PO 0.4 mg DAILY@0830 [facility] Administration Home Medications Medication Instructions Recorded Aspirin [ASA -] 81 mg PO DAILY 07/03/19 Atenolol [Tenormin -] 25 mg PO DAILY 07/03/19 Atorvastatin Ca [Lipitor] 20 mg PO HS 07/03/19 Finasteride [Proscar -] 5 mg PO DAILY 07/03/19 Tamsulosin HCl [Flomax] 0.4 mg PO DAILY 07/03/19 ASSESSMENT AND PLAN: 74 year old male ex-smoker with history of COPD, HTN, HLD, BPH s/p TURP, initially presented to Neuro with recent bouts of forgetfulness, had MRI as an out-patient which was significant for possible acute CVA (L temporal infarct) with moderae to severe chronic microvascular changes, and petechial hemorrhages. No headache/visual disturbance/limb numbness, weakness, or tingling. No fever/chills. NO LOC - no seizure/blackouts/fall/HI. 1. Possible Anterograde Amnesia Otherwiese Neurologicaly intact. ?sec to vascular event Seen by Neurology who is questioning possible ischemic lesion/cortical mass in posterior frontal region on MRI. Continue Aspirin, Statin (dose increased to 40mg) Carotid Duplex negative for significant stenosis ECG - SR, RBBB Echo with bubble study ordered. Repeat MRI with ZAHIDA done which again showed L temporal lobe restricted diffusion with patchy enhancement suspicious for poss subacute infarct vs cerebritis vs encephalitis vs high grade glial neoplasm. Neurology evaluated - awaiting re-eval s/p repeat MRI with contrast for further recommendations. If this is felt to be an infarct then intensification of secondary stroke prevention will be required as he was on Aspirin when this occurred. 2. HTN - continue Atenolol 3. BPH s/p TURP - Continue Finasteride and Tamsulosin 4. HLD - Continue Statin (if this is felt to be an ischemic event, will increase statin dose to 40mg as LDL below target). LDL 84/HDL 73 5. 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 6. Microcytosis - no evidence of acute blood loss. Denies melena/hematochezia. FOBT neg. Iron/Ferritin not deficient. ?inherited Hb disorders (?SCD ? Thalassemia) - further work-up as out-patient. DVT Px - SCDs. Lovenox held due to possible petechial hemorrhages on initial MRI. Neurology to kindly comment. Visit type - Emergency Visit Emergency Visit: Yes ED Registration Date: 07/03/19 Care time: The patient presented to the Emergency Department on the above date and was hospitalized for further evaluation of their emergent condition. - New Patient This patient is new to me today: No - Critical Care Critical Care patient: No - Discharge Referral Referred to [facility] Med P.C.: No
--- NOTE | 2019-07-04 16:52 | EKG ---
Test Reason : Blood Pressure : / mmHG Vent. Rate : 047 BPM Atrial Rate : 047 BPM P-R Int : 218 ms QRS Dur : 148 ms QT Int : 452 ms P-R-T Axes : 028 101 029 degrees QTc Int : 400 ms SINUS BRADYCARDIA WITH 1ST DEGREE A-V BLOCK RIGHT BUNDLE BRANCH BLOCK ABNORMAL ECG NO PREVIOUS ECGS AVAILABLE Confirmed by MYLES RADFORD, UBALDO ([id number]) on 07/04/2019 4:51:59 PM Referred By: Confirmed By:UBALDO BUENO MD
--- NOTE | 2019-07-04 19:50 | PN ---
Progress Note, Physician History of Present Illness: events noted Seen at 7:30 pm Family at [facility] bedside Slightly confused No seziure No abnormal movement MRI results noted - Current Medication List Current Medications: Active Medications Aspirin (Asa -) 81 mg PO DAILY [facility] Last Admin: 07/04/19 09:38 Dose: 81 mg Atenolol (Tenormin -) 25 mg PO DAILY [facility] Last Admin: 07/04/19 09:41 Dose: 25 mg Atorvastatin Calcium (Lipitor -) 40 mg PO DAILY@0600 [facility] Last Admin: 07/04/19 05:49 Dose: 40 mg Finasteride (Proscar -) 5 mg PO DAILY [facility] Last Admin: 07/04/19 09:38 Dose: 5 mg Sodium Chloride (Normal Saline -) 1,000 mls @ 42 mls/hr IV ASDIR [facility] Last Admin: 07/03/19 16:42 Dose: 42 mls/hr Tamsulosin HCl (Flomax -) 0.4 mg PO DAILY@0830 [facility] Last Admin: 07/04/19 08:20 Dose: 0.4 mg - Objective Vital Signs: Vital Signs Temperature 97.4 F L 07/04/19 18:08 Pulse Rate 52 L 07/04/19 18:08 Respiratory Rate 17 07/04/19 18:08 Blood Pressure 113/62 07/04/19 18:08 O2 Sat by Pulse Oximetry (%) 96 07/04/19 09:00 Constitutional: Yes: Well Nourished Eyes: Yes: WNL Neurological: Yes: Alert, Oriented, Babinski negative ...Motor Strength: WNL Labs: CBC, BMP 07/04/19 07:47 07/04/19 06:00 INR, PTT INR 1.02 (0.83-1.09) 07/03/19 12:50 Problem List - Problems (1) CVA (cerebral vascular accident) Assessment/Plan: MRI with ?? Cerebrits vs low glial lesion Will do Spinal tap Check Cells Check Flow cystometry Consent obtained Code(s): I63.9 - CEREBRAL INFARCTION, UNSPECIFIED Qualifiers: CVA mechanism: thrombosis Precerebral and cerebral artery: unspecified precerebral artery Qualified Code(s): I63.00 - Cerebral infarction due to thrombosis of unspecified precerebral artery
--- NOTE | 2019-07-04 20:19 | PROC ---
Lumbar Puncture Indication: Cerbritis Risks and Benefits Explained: Yes Consent on Chart: Yes Sterile Technique: Yes Skin prep: Betadine Position: Right lateral decubitus Site: L3-L4 Local Anesthesia: 1% Lidocaine with epi Closing Pressure(mmHg): 6 CSF Color, Appearance: Cloudy Sterile Dressing Applied: Yes Remarks: Tolerated well
[2019-07-04] MEDS ORDERED: ACETAMINOPHEN 325 MG TABLET (FP) PO PRN (20:22)
[2019-07-04 21:45] LABS: CSF APPEARANCE CLEAR; CSF COLOR COLORLESS; CSF WBC 2
[2019-07-04 22:05] LABS: BF GLUCOSE (CSF ONLY) 64 mg/dL (40-70)
[2019-07-04] MEDS: SODIUM CHLORIDE 1,000 ML IV SCH (22:33)
[2019-07-05 08:35] LABS: BLOOD UREA NITROGEN 20.3 mg/dL (7-18); CREATININE 1.6 mg/dL (0.55-1.3)
[2019-07-05] MEDS: TAMSULOSIN HCL 0.4 MG CAP PO SCH (09:01)
[2019-07-05] MEDS: ATENOLOL 25 MG TABLET (FP) PO SCH (09:01)
[2019-07-05] MEDS: ASPIRIN 81 MG CHEWABLE TABLETS PO SCH (09:01)
[2019-07-05] MEDS: FINASTERIDE 5 MG TABLET (FP) PO SCH (09:01)
--- NOTE | 2019-07-05 09:25 | CONSULT ---
Admitting History and Physical - Smoking History Smoking history: Former smoker Have you smoked in the past 12 months: No Aproximately how many cigarettes per day: 4 If you are a former smoker, when did you quit?: 2 years ago - Alcohol/Substance Use Hx Alcohol Use: No History - Admission Reason For Visit: CEREBROVASCULAR ACCIDENT - Hearing Hearing: Normal Hearing Aide: No Speech Evaluation - Communication Primary Language: [id number] Communication: Yes: Within Normal Limits, Simple Responses Oral Expression Ability: Yes: No Impairment - Speech Production Apraxia: No Able to Make Needs Known: Yes: WNL Intelligibility: Yes: WNL - Speech Characteristics Voice Loudness: Normal Voice Pitch: Yes: Normal Voice Phonatory-based Quality: Yes: Normal Speech Pattern: Normal Nasal Resonance: Normal Articulation: Yes: Precise Rate of Speech: Intact Voice Comment: vocal quality is WNL - Language/Auditory Comprehension Follows: Yes: 1 Stage Simple Commands (WFL), 2 Stage Simple Commands (WFL), Complex Commands (WFL) Observation: Able to respond to yes/no queries: Yes, Yes/No Confusion: No, Comprehends Conversational Speech: Yes, Benefits from Slow Speech: No (Not needed), Benefits from Repetiton: No (Not needed), Benefits from Increased Volume of Speech: No (Not needed) - Language/Verbal Expression Able to Respond to Simple Queries: Yes: WNL Able to Communicate Wants and Needs: Yes: WNL Functional Communication Status: Yes: WNL Aware of Errors: Yes Attempts to Correct Errors: Yes Use of Gestures: No Written Expression: Not examined Oral Expression: WFL Reading Comprehension: Not examined Calculations: Not examined Attention: Yes: Intact - Memory/Perception long-term Memory: Yes: WNL Short Term Memory: Yes: WNL - Swallow Evaluation/Bedside Assessment Current Nutritional Intake: Regular, Thin Liquids Oral Secretions: Yes: WFL Tracheostomy Present: No Patient on Ventilator: No Dentition: Yes: Adequate Facial Symmetry at Rest: Symmetrical Facial Symmetry on Retraction: Symmetrical Facial Movement: Controlled Sensation: Normal Facial Comment: WFL for speech and swallowing purposes Jaw Position: Open at Rest Against Resistance Opening: Normal Against Resistance Closing: Normal Pucker Lips: Normal Lips, Comment: WFL for speech and swallowing purposes Lingual Movement: Normal Lingual Speed of Movement: Normal Lingual Movement Strgth Against Opposition: Normal Lingual Movement Characteristics: Normal Lingual Comment: WFL for speech and swallowing purposes Soft Palate Description: Normal Color, Normal Arch Hard Palate Description: Normal Color, Normal Arch Gag Reflex: Strong Velopharyngeal Movement: Normal Laryngeal Elevation: WFL Laryngeal Movement: Able to Palpate Needs Assistance: No Rate of Intake: WFL Bolus Size: WFL Labial Seal: WFL Chewing: WFL Oral Prep Time: WFL A-P Transit: WFL Timing of Swallow: WFL Coughing/Throat Clear: No Change in Voice: No Other Findings/Remarks: 74 yo male seen at bedside for swallow eval to r/o dysphagia. Pt is verbal, A& Ox3 cooperative. PMHX includes COPD, OA, HTN, BPH, and HLD. Vocal quality is WNL. Oral facial features are WFL Pt given po trials of pureed,regular solids without assistance revealed good acceptance, adequate mastication and transport. Pharyngeal swallow appears timely with no cough or changes in vocal quality Thin liquid trials were unremarkable for dysphagia at bedside at this time. Recommendations - Speech Evaluation, Impression/Plan Impression: 74 yo male presents with no signs of dysphagia and / or aspiration for pureed, regular solids or thin liquids at bedside at this time. Speech and language is WNL. Crm Marketing Executive Goals: tolerate the least restrictive diet without s/s aspiration. Short Term Goals: tolerate regular solids with thin liquids without s/s of aspiration. - Dysphagia Impressions/Plan Swallowing Skills: WF Dysphagia Impressions: No Impairment Dysphagia Treatment Plan: Safe Rate Dysphagia Evaluation Summary: Continue regular solids with thin liquids as tolerated. Observe standard aspiration precautions. Meds can be given whole with water. Results given to hot metal charger and PCP via chart. No further intervention needed unless there is a change in medical status - Recommendations Diet Consistency: Regular Medication Administration: Whole with water Liquids: Thin Liquids
[2019-07-05 11:43] VITALS: BMI 27.3
--- NOTE | 2019-07-05 11:51 | PN ---
Progress Note, Physician History of Present Illness: events noted Celert revkristened Spoke to rambo CSF results mostly pending Cells noted memory the same - Current Medication List Current Medications: Active Medications Acetaminophen (Tylenol -) 650 mg PO Q4H PRN PRN Reason: PAIN LEVEL 4 - 6 Last Admin: 07/04/19 22:32 Dose: 650 mg Aspirin (Asa -) 81 mg PO DAILY [facility] Last Admin: 07/05/19 09:01 Dose: 81 mg Atenolol (Tenormin -) 25 mg PO DAILY [facility] Last Admin: 07/05/19 09:01 Dose: 25 mg Atorvastatin Calcium (Lipitor -) 40 mg PO HS [facility] Last Admin: 07/05/19 00:00 Dose: 40 mg Finasteride (Proscar -) 5 mg PO DAILY [facility] Last Admin: 07/05/19 09:01 Dose: 5 mg Sodium Chloride (Normal Saline -) 1,000 mls @ 42 mls/hr IV ASDIR [facility] Last Admin: 07/04/19 22:33 Dose: Not Given Tamsulosin HCl (Flomax -) 0.4 mg PO DAILY@0830 [facility] Last Admin: 07/05/19 09:01 Dose: 0.4 mg - Objective Vital Signs: Vital Signs Temperature 97.9 F 07/05/19 09:04 Pulse Rate 75 07/05/19 09:04 Respiratory Rate 18 07/05/19 09:04 Blood Pressure 135/83 07/05/19 09:04 O2 Sat by Pulse Oximetry (%) 98 07/05/19 09:06 Constitutional: Yes: Well Nourished Eyes: Yes: WNL HENT: Yes: WNL Neck: Yes: WNL Neurological: Yes: Alert, Oriented, Babinski negative ...Motor Strength: WNL Labs: CBC, BMP 07/04/19 07:47 07/05/19 06:48 INR, PTT INR 1.02 (0.83-1.09) 07/03/19 12:50 Problem List - Problems (1) CVA (cerebral vascular accident) Assessment/Plan: 1. DC home 2 .Full Asa 3. Lipitor 40 mg po qd 4. Follow up with neurology in two weeks Code(s): I63.9 - CEREBRAL INFARCTION, UNSPECIFIED Qualifiers: CVA mechanism: thrombosis Precerebral and cerebral artery: unspecified precerebral artery Qualified Code(s): I63.00 - Cerebral infarction due to thrombosis of unspecified precerebral artery
--- NOTE | 2019-07-05 13:03 | PN ---
Teaching Attending Note Name of Resident: Elizabeth Hines ATTENDING PHYSICIAN STATEMENT I saw and evaluated the patient. I reviewed the resident's note and discussed the case with the resident. I agree with the resident's findings and plan as documented. SUBJECTIVE: Complains of ongoing forgetfulness. Occasional headache. Visual disturbance/limb numbness, weakness, or tingling. No fever/chills. No LOC - no seizure/blackouts/fall/HI. OBJECTIVE: Afebrile, Hemodynamically Stable. Last Vital Signs Temp Pulse Resp BP Pulse Ox 97.9 F 75 18 135/83 98 07/05/19 09:04 07/05/19 09:04 07/05/19 09:04 07/05/19 09:04 07/05/19 09:06 HEENT - Atraumatic, Normocephalic. HEART - S1, S2, RRR LUNGS - clear to auscultation ABDOMEN - Soft, non-tender. Bowel Sounds normal. EXTREMITIES - no edema, no calf tenderness. NEURO - AAO x 2-3. EOMI. JAYSHREE. TONE/POWER normal all 4 extremities. Sensation/ Coordination intact. Laboratory Results - last 24 hr 07/04/19 07/05/19 20:20 06:48 Sodium 143 Potassium 5.0 Chloride 111 H Carbon Dioxide 27 Anion Gap 6 L BUN 20.3 H Creatinine 1.6 H Est GFR (CKD-EPI)AfAm 48.81 Est GFR (CKD-EPI)NonAf 42.11 Random Glucose 81 Calcium 9.0 CSF Appearance Clear CSF Color Colorless CSF WBC 2 CSF RBC 1 CSF Neutrophils No Result Required. CSF Lymphocytes No Result Required. CSF Eosinophils No Result Required. CSF Basophils No Result Required. CSF Macrophages No Result Required. CSF Plasma Cells No Result Required. CSF Diff Comment No Result Required. CSF Comment Tube # 1 CSF Glucose 64 CSF Total Protein 48 H Current Medications Generic Name Dose Route Start Last Admin Trade Name Freq PRN Reason Stop Dose Admin Acetaminophen 650 mg 07/04/19 20:22 07/04/19 22:32 Tylenol - PO 650 mg Q4H PRN Administration PAIN LEVEL 4 - 6 Aspirin 81 mg 07/04/19 10:00 07/05/19 09:01 Asa - PO 81 mg DAILY POLLY Administration Atenolol 25 mg 07/04/19 10:00 07/05/19 09:01 Tenormin - PO 25 mg DAILY POLLY Administration Atorvastatin Calcium 40 mg 07/04/19 23:45 07/05/19 00:00 Lipitor - PO 40 mg HS POLLY Administration Finasteride 5 mg 07/04/19 10:00 07/05/19 09:01 Proscar - PO 5 mg DAILY POLLY Administration Sodium Chloride 1,000 mls @ 42 mls/hr 07/03/19 12:30 07/04/19 22:33 Normal Saline - IV Not Given ASDIR POLLY Tamsulosin HCl 0.4 mg 07/04/19 08:30 07/05/19 09:01 Flomax - PO 0.4 mg DAILY@0830 POLLY Administration Home Medications Medication Instructions Recorded Aspirin [ASA -] 81 mg PO DAILY 07/03/19 Atenolol [Tenormin -] 25 mg PO DAILY 07/03/19 Atorvastatin Ca [Lipitor] 20 mg PO HS 07/03/19 Finasteride [Proscar -] 5 mg PO DAILY 07/03/19 Tamsulosin HCl [Flomax] 0.4 mg PO DAILY 07/03/19 ASSESSMENT AND PLAN: 74 year old male ex-smoker with history of COPD, HTN, HLD, BPH s/p TURP, initially presented to Neuro with recent bouts of forgetfulness, had MRI as an out-patient which was significant for possible acute CVA (L temporal infarct) with moderae to severe chronic microvascular changes, and petechial hemorrhages. No headache/visual disturbance/limb numbness, weakness, or tingling. No fever/chills. No LOC - no seizure/blackouts/fall/HI. 1. Possible Anterograde Amnesia secto likely CVA Otherwise Neurologically intact. Seen by Neurology who is questioning possible ischemic lesion/cortical mass in posterior frontal region on MRI. Repeat MRI with ZAHIDA done which again showed L temporal lobe restricted diffusion with patchy enhancement suspicious for poss subacute infarct vs cerebritis vs encephalitis vs high grade glial neoplasm. s/p LP - CSF neg so far, viral studies pending - no signs of infection - follow up with Neuro as out-patient. Continue Aspirin, Statin (dose increased to 40mg) Carotid Duplex negative for significant stenosis ECG - SR, RBBB Echo with bubble study ordered. Neurology evaluated - clear for discharge with ASA/Statin as per Neuro. 2. HTN - continue Atenolol 3. BPH s/p TURP - Continue Finasteride and Tamsulosin 4. HLD - Continue Statin (dose increased). LDL 84/HDL 73 5. 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 6. Microcytosis - no evidence of acute blood loss. Denies melena/hematochezia. FOBT neg. Iron/Ferritin not deficient. ?inherited Hb disorders (?SCD ? Thalassemia) - further work-up as out-patient. Medically/Neurologically intact and fit for discharge pending Echo - Neuro/ Hematology follow up.
--- NOTE | 2019-07-05 15:44 | ECHO ---
Name: VIJAYA RAMIREZ Exam:Adult Echocardiogram Study Date: 07/05/2019 02:44 PM Age: 74 yrs Reason For Study: R/O CVA/TIA/STROKE Height: 65 in Weight: 165 lb BSA: 1.8 m2 MMode/2D Measurements & Calculations IVSd: 0.91 cm Ao root diam: 2.9 cm LVIDd: 4.8 cm LA dimension: 3.5 cm LVIDs: 3.0 cm LVPWd: 0.72 cm EDV(Teich): 106.5 ml LVOT diam: 2.0 cm ESV(Teich): 35.3 ml Doppler Measurements & Calculations MV E max nick: 49.4 cm/sec Ao V2 max: 172.6 cm/sec MV A max nick: 67.6 cm/sec Ao max P.9 mmHg MV E/A: 0.73 Ao V2 mean: 97.8 cm/sec MV dec time: 0.25 sec Ao mean P.1 mmHg Ao V2 VTI: 32.4 cm AMNA(I,D): 2.4 cm2 AMNA(V,D): 2.2 cm2 LV V1 max P.8 mmHg SV(LVOT): 76.7 ml LV V1 mean P.3 mmHg LV V1 max: 119.9 cm/sec LV V1 mean: 65.8 cm/sec LV V1 VTI: 23.9 cm TR max nick: 129.0 cm/sec Med Peak E' Nick: 6.3 cm/sec TR max P.8 mmHg Med E/e': 7.9 Lat Peak E' Nick: 8.1 cm/sec Lat E/e': 6.1 Procedure A complete two-dimensional transthoracic echocardiogram was performed (2D, M-mode, Doppler and color flow Doppler). Left Ventricle The left ventricle is normal in size. Left ventricular systolic function is normal. Ejection Fraction = 65- 70%. Grade I diastolic dysfunction, (abnormal relaxation pattern). Ratio E/E'= 8. No regional wall mo tion abnormalities noted. Right Ventricle The right ventricle is normal size. The right ventricular systolic function is normal. Atria The left atrial size is normal. Right atrial size is normal. Mitral Valve There is mild mitral annular calcification. There is no mitral regurgitation noted. Tricuspid Valve The tricuspid valve is normal in structure and function. There is mild tricuspid regurgitation. Right ventricular systolic pressure is normal. Aortic Valve There is mild aortic sclerosis.;. No aortic regurgitation is present. Pulmonic Valve The pulmonic valve is not well visualized. Great Vessels The aortic root is normal size. Pericardium/Pleura There is no pericardial effusion. Interpretation Summary (botj The left ventricle is normal in size. Left ventricular systolic function is normal. No regional wall motion abnormalities noted. Ejection Fraction = 65-70%. Grade I diastolic dysfunction, (abnormal relaxation pattern). Ratio E/E'= 8 The right ventricular systolic function is normal. The left atrial size is normal. Right atrial size is normal. There is mild mitral annular calcification. There is mild tricuspid regurgitation. Right ventricular systolic pressure is normal. There is mild aortic sclerosis.; There is no pericardial effusion. Agitated saline injection does not reveal right to left shunt including with valsalva. Bertram Taylor MD 07/05/2019 03:44 PM
--- NOTE | 2019-07-05 16:38 | DS ---
Physical Exam: SUBJECTIVE: Patient seen and examined. He reports a frontal headache following LP yesterday which has since resolved. He denies dizziness. Pt's family reports he had a band-like headache 1 week ago. He denies chest pain, shortness of breath, nausea or vomiting. OBJECTIVE: Vital Signs Period Temp Pulse Resp BP Sys/Sanchez Pulse Ox Last 24 Hr 97.4 F-98.5 F 49-75 15-18 100-139/56-83 96-98 PHYSICAL EXAM GENERAL: The patient is awake, alert, and oriented to person and place, in no acute distress. HEAD: Normal with no signs of trauma. EYES: PERRL, extraocular movements intact, sclera anicteric, conjunctiva clear. ENT: Ears normal, nares patent, moist mucous membranes. NECK: Trachea midline, full range of motion, supple. LUNGS: Breath sounds equal, clear to auscultation bilaterally, no wheezes, no crackles, no accessory muscle use. HEART: Regular rate and rhythm, S1, S2 without murmur, rub or gallop. ABDOMEN: Soft, nontender, nondistended, normoactive bowel sounds. EXTREMITIES: 2+ pulses, warm, well-perfused, no edema. NEUROLOGICAL: Cranial nerves II through XII grossly intact. Normal speech, normal gait. PSYCH: Normal mood, normal affect. SKIN: Warm, dry, normal turgor, no rashes or lesions noted. LABS Laboratory Results - last 24 hr 07/04/19 07/04/19 07/05/19 06:00 20:20 06:48 Sodium 143 Potassium 5.0 Chloride 111 H Carbon Dioxide 27 Anion Gap 6 L BUN 20.3 H Creatinine 1.6 H Est GFR (CKD-EPI)AfAm 48.81 Est GFR (CKD-EPI)NonAf 42.11 Random Glucose 81 Calcium 9.0 CSF Appearance Clear CSF Color Colorless CSF WBC 2 CSF RBC 1 CSF Neutrophils No Result Required. CSF Lymphocytes No Result Required. CSF Eosinophils No Result Required. CSF Basophils No Result Required. CSF Macrophages No Result Required. CSF Plasma Cells No Result Required. CSF Diff Comment No Result Required. CSF Comment Tube # 1 CSF Glucose 64 CSF Total Protein 48 H Hep A IgM Ab Confirm Negative Hep Bs Antigen Negative Hep B Core IgM Ab Negative Hepatitis C Ab (EIA) 0.2 HIV 1&2 Ag/Ab, 4th Gen Non reactive HOSPITAL COURSE: Mr. Smith is a 74y/o male with COPD, OA, HTN, BPH, and HLD who presents with 2 weeks of memory loss. He was sent to the ED by Dr. Don following an MRI as outpatient which could not exclude CVA. MRI with ZAHIDA showed restrictive diffusion with patchy enhancement in the left temporal lobe which could be subacute infarct. Carotid doppler was negative. Echo showed EF 65-70% with diastolic dysfunction with no defects. LP was done which did not show evidence of bacterial meningitis. Other LP labs are pending. Pt was discharged with increased dosage of lipitor and ASA. Lipitor 40mg and ASA 325. He was told to follow up with Dr. Don in the next 2 weeks. He was also found to have microcytosis without anemia deficiency and was told to follow up with Dr. Lopez in the next 2 weeks. His Cr was elevated and there is no record of previous Cr levels, so he was told to follow up with his PCP to have labs checked in the next 2 weeks. Date of Admission:07/03/19 Date of Discharge: 07/05/19 Minutes to complete discharge: 35 Discharge Summary Problems reviewed: Yes Reason For Visit: CEREBROVASCULAR ACCIDENT Current Active Problems NIKOS (acute kidney injury) (Acute) CVA (cerebral vascular accident) (Acute) Condition: Stable - Instructions Diet, Activity, Other Instructions: Hospital Visit: You were admitted to the hospital because of memory loss and Dr. Don wanted to run tests to try to figure out a cause. There are still test results that are pending. Follow up with Dr. Don to get the results. You were also found to have microcytosis, where your red blood cells are small. You will need to follow up with Dr. Lopez, elastic attacher chainstitch, to get further evaluation. Medications: Resume your home medications. Your dosage of Lipitor (atorvastatin) has increased from 20mg to 40mg. You are being given a new prescription for it. Follow up with the following: Dr. Don within 2 weeks of discharge for your memory and tests done in the hospital. You must call him to schedule an appointment, your workup is not complete until you do. Dr. Lopez (elastic attacher chainstitch) within 1-[address] Tomas within 1-2 weeks of discharge for follow up. You will likely need to have repeat labwork done to monitor your kidney function. Dr. Bertram Taylor (Cardiology) within 1-2 weeks as your echocardiogram reveals you have some abnormality in your heart function (impaired LV Relaxation). Other instructions: Please hydrate yourself and drink plenty of fluids. Your swallowing was evaluated during your stay and it was recommend you drink mostly thin liquids in your diet. Return to the emergency room if you are having worsening headache or dizziness, chest pain, shortness of breath, have difficulty walking or using your arms and legs, have slurred speech, or your vision changes. Referrals: Bertram Taylor MD [Staff Physician] - Tom Lopez MD [Staff Physician] - Mona Don MD [Staff Physician] - Disposition: HOME - Home Medications Comprehensive Discharge Medication List: Ambulatory Orders Aspirin [ASA -] 81 mg PO DAILY 07/03/19 Atenolol [Tenormin -] 25 mg PO DAILY 07/03/19 Finasteride [Proscar -] 5 mg PO DAILY 07/03/19 Tamsulosin HCl [Flomax -] 0.4 mg PO HS 07/03/19 Atorvastatin Ca [Lipitor] 40 mg PO HS 30 Days #30 tablet 07/05/19 Donepezil HCl 5 mg PO DAILY 07/05/19 Pregabalin [Lyrica] 25 mg PO BID 07/05/19 This patient is new to me today: Yes Date on this admission: 07/05/19 Emergency Visit: Yes ED Registration Date: 07/03/19 Care time: The patient presented to the Emergency Department on the above date and was hospitalized for further evaluation of their emergent condition. Critical Care patient: No - Discharge Referral Referred to [facility] Med [facility].C[facility] No ATTENDING PHYSICIAN STATEMENT I saw and evaluated the patient. I reviewed the resident's note and discussed the case with the resident. I agree with the resident's findings and plan as documented. SUBJECTIVE: OBJECTIVE: ASSESSMENT AND PLAN:
[2019-07-05 18:11] VITALS: BP 141/74; PULSE 58; TEMP 97.9
[2019-07-08 05:07] LABS: LYME PCR CSF Negative (Negative)
[2019-07-08 10:52] LABS: CMV IgG CSF < 0.20 U/mL (.); TOXOPLASMA IGG,CSF < 3.0 IU/mL (.)
[2019-07-08 19:10] LABS: ANTI-Yo ANTIBODY CSF <1:10 titer (.)
[2019-07-15 14:51] LABS: IGG CSF. QNS MG/DL
[2019-07-19 15:10] LABS: MUMPS AB IGG CSF < 5.0 AU/mL (<=10.9)
[2019-07-19 16:11] LABS: HERPES SIMPLEX TYPE 1 IGM 1.12 IV (<=0.89)
== END 2019-07-05 18:20 | disposition home or self-care (01) | DRG 66 ==
LOC: JER 11:33 → JERBED 13:34 → J4S 15:37
PROC: 009U3ZZ Drainage of Spinal Canal, Percutaneous Approach (ICD-10-PCS; principal; 2019-07-04)
DX: I63.00 Cerebral infarction due to thrombosis of unspecified precerebral artery (principal); G93.9 Disorder of brain, unspecified; I25.10 Atherosclerotic heart disease of native coronary artery without angina pectoris; I10 Essential (primary) hypertension; N40.0 Benign prostatic hyperplasia without lower urinary tract symptoms; M19.90 Unspecified osteoarthritis, unspecified site; I45.10 Unspecified right bundle-branch block; I44.0 Atrioventricular block, first degree; R00.1 Bradycardia, unspecified; J44.9 Chronic obstructive pulmonary disease, unspecified; E78.5 Hyperlipidemia, unspecified; R41.1 Anterograde amnesia; I12.9 Hypertensive chronic kidney disease with stage 1 through stage 4 chronic kidney disease, or unspecified chronic kidney disease; N18.3 Chronic kidney disease, stage 3 (moderate); H53.9 Unspecified visual disturbance
CPT/HCPCS: 36415; 70551-TC; 70553-TC; 71046-TC-FY; 80048; 80053; 80061; 80074; 81003; 82272; 82378; 82550; 82553; 82565; 82728; 82784; 82945; 83540; 83550; 83605; 83721; 83735; 84100; 84157; 84166; 84300; 84484; 85025; 85027; 85610; 85730; 86592; 86617; 86644; 86663; 86664; 86665; 86694; 86735; 86765; 86777; 86787; 86788; 86789; 86850; 86900; 86901; 87070; 87205; 87389; 87476; 87798; 93005; 93010; 93306-TC; 93880-TC; 97116-GP; 97161-GP; 99283-25; A9579; J7030